=== PATIENT | female | born 1985 | race African-American/Black ===

== ENCOUNTER 2018-09-18 20:20 | Observation (INO) | payer SELFPAY ==
[~2018-09-18] VITALS: Ht 165.1 cm; Wt 117.5 kg
[2018-09-18 21:37] LABS: APPEARANCE,URINE CLOUDY (CLEAR); BILIRUBIN,URINE NEGATIVE (NEGATIVE); GLUCOSE, URINE (UA) NEGATIVE (NEGATIVE); KETONES,URINE NEGATIVE (NEGATIVE); LEUKOCYTE ESTERASE ,URINE MODERATE (NEGATIVE); NITRATE,URINE NEGATIVE (NEGATIVE); OCCULT BLOOD,URINE NEGATIVE (NEGATIVE); PH,URINE 6.5 (5.0-8.0); PROTEIN,URINE TRACE (NEGATIVE)
[2018-09-18 21:52] LABS: BACTERIA,URINE Rare /HPF (None Seen); RBC,URINE None Seen /HPF (0-2); SQUAMOUS EPITHELIAL CELL,UR Few /LPF (None Seen)
[2018-09-18] MEDS ORDERED: RINGERS SOLUTION,LACTATED 1,000 ML IV ONE (23:15)
[2018-09-19] MEDS: RINGERS SOLUTION,LACTATED 1,000 ML IV SCH ×2 (01:06→08:36)
[2018-09-19 04:16] VITALS: BP 122/65
== END 2018-09-19 10:05 | disposition home or self-care (01) ==
LOC: 4S 20:20
PROVIDERS: ADMIT Obstetrics & Gynecology; ATTEND Obstetrics & Gynecology
DX: O42.912 Preterm premature rupture of membranes, unspecified as to length of time between rupture and onset of labor, second trimester (principal); O99.322 Drug use complicating pregnancy, second trimester; F15.10 Other stimulant abuse, uncomplicated; Z3A.27 27 weeks gestation of pregnancy
CPT/HCPCS: 36415; 76805 ×2; 80307 ×8; 80324; 80349; 81001; 82731; 87077; 87086; 87186; 89060; G0378 ×2; J7120 ×2

== ENCOUNTER 2021-03-23 06:18 | Emergency (ER) | payer MEDICAID, OTHER ==
[~2021-03-23] VITALS: Ht 175.3 cm; Wt 118.2 kg
[2021-03-23] MEDS ORDERED: ACETAMINOPHEN 500 MG TABLET PO ONE (06:45)
[2021-03-23 07:01] LABS: COVID AG,FIA SOURCE NASOPHARYNGEAL
[2021-03-23 09:09] LABS: INFLUENZA TYPE A NEGATIVE FOR TYPE A (NEGATIVE); INFLUENZA TYPE B NEGATIVE FOR TYPE B (NEGATIVE)
[2021-03-23 09:25] VITALS: BP 126/83
== END 2021-03-23 09:38 | disposition home or self-care (01) ==
LOC: EMS 06:21
DX: B34.9 Viral infection, unspecified (principal); Z20.822 Contact with and (suspected) exposure to COVID-19
CPT/HCPCS: 87426; 87804; 99283; U0003